=== PATIENT | female | born 1985 | race Caucasian/White ===

== ENCOUNTER 2016-06-15 18:58 | Emergency (ER) | payer OTHER ==
[~2016-06-15] VITALS: Ht 162.6 cm; Wt 70.0 kg
[2016-06-15 19:13] VITALS: Ht 162.6 cm; Wt 70.0 kg
[2016-06-15] MEDS ORDERED: SOD CHLORIDE 0.9% 1,000 ML IV STA (20:04)
[2016-06-15] MEDS ORDERED: morphine 2 MG INJ IV ONE ×2 (20:30→21:30)
[2016-06-15 20:49] LABS: BASOPHILS % 0.4 % (0.0-2.0); EOSINOPHILS % 0.2 % (0.0-7.0); HEMATOCRIT 40.3 % (37.0-47.0); HEMOGLOBIN 14.1 g/dl (12.0-16.0); LYMPHOCYTES # 1.8 10^3/ul (0.8-2.9); LYMPHOCYTES % 22.3 % (15.0-51.0); MEAN CORPUSCULAR HEMOGLOBIN 35.5 pg (29.0-33.0); MEAN CORPUSCULAR HGB CONC 35.1 g/dl (32.0-37.0); MEAN CORPUSCULAR VOLUME 101.4 fl (82.0-101.0); MEAN PLATELET VOLUME 7.8 fl (7.4-10.4); MONOCYTE # 0.5 10^3/ul (0.3-0.9); MONOCYTES % 6.8 % (0.0-11.0); NEUTROPHIL # 5.5 10^3/ul (1.6-7.5); NEUTROPHILS % 70.3 % (39.0-77.0); PLATELET COUNT 285 10^3/UL (140-440); RED BLOOD COUNT 3.98 10^6/ul (4.20-5.40); UNCORRECTED WBC 7.9 10^3/ul (4.8-10.8); WHITE BLOOD COUNT 7.9 10^3/ul (4.8-10.8)
[2016-06-15 20:58] LABS: INR 0.93; PROTIME 12.5 Sec (12.2-14.2)
[2016-06-15 20:59] LABS: PARTIAL THROMBOPLASTIN TIME 24.6 Sec (25.0-35.0)
[2016-06-15 21:03] LABS: ADD UMIC NO; URINE BILIRUBIN (Dip) NEGATIVE (NEGATIVE); URINE BLOOD (Dip) NEGATIVE (NEGATIVE); URINE COLOR LT. YELLOW (YELLOW); URINE GLUCOSE (Dip) NEGATIVE (NEGATIVE); URINE KETONES (Dip) NEGATIVE (NEGATIVE); URINE LEUKOCYTE ESTERASE (Dip) NEGATIVE (NEGATIVE); URINE NITRITE (Dip) NEGATIVE (NEGATIVE); URINE TOTAL PROTEIN (Dip) NEGATIVE (NEGATIVE); URINE UROBILINOGEN (Dip) 0.2 E.U./dL (0.1-1.0)
[2016-06-15 21:07] LABS: CONDITION 1; LH ANALYZER COMMENTS 1
--- NOTE | 2016-06-15 22:06 | RADRPT ---
PROCEDURE: US OB. CLINICAL INDICATION: Pelvic pain TECHNIQUE: Transabdominal views of the pelvis are available for review. COMPARISON: No prior studies are available for comparison. FINDINGS: There is a single intrauterine gestation with the crown-rump length measuring 2.6 cm, corresponding to a gestational age of 9 weeks and 3 days. The heart rate is noted at 176 bpm. The ovaries are not seen. There is no free fluid. RPTAT: AA IMPRESSION: Single live intrauterine with an estimated gestational age of 9 weeks and 3 days, based on ultrasound measurements. JULIA based on ultrasound measurements is 01/13/17. .Iain Sandoval MD, MD Date Time Electronically viewed and signed by .Iain Sandoval MD, MD on 06/15/2016 22:06 .S/
--- NOTE | 2016-06-15 22:07 | RADRPT ---
PROCEDURE: US Lower extremity Venous. CLINICAL INDICATION: Bilateral lower extremity swelling , pain TECHNIQUE: Multiple sonographic images of the bilateral lower extremity deep venous system was obt ained utilizing grayscale, color-flow, compressive sonography and doppler imaging with augmentation. The images were reviewed on a PACS workstation. COMPARISON: None. FINDINGS: There is normal compressibility and flow within the bilateral common femoral, superficial femoral , posterior tibial and popliteal veins. RPTAT: AA IMPRESSION: No sonographic evidence for deep venous thrombosis. .Iain Sandoval MD, MD Date Time Electronically viewed and signed by .Iain Sandoval MD, MD on 06/15/2016 22:06 .S/
[2016-06-15] MEDS ORDERED: ACET500C5 PO (22:30)
[2016-06-15 22:45] VITALS: BP 127/68; PULSE 68; RESP 16; TEMP 98.1
--- NOTE | 2016-06-16 01:29 | ERD ---
ER Documentation Chief Complaint Date/Time DATE: 06/16/16 TIME: 01:24 Chief Complaint pelvic pain, no bleeding, 9 weeks preg. pain shooting down R leg HPI This patient is a 31-year-old female who is Ab1 currently approximately 9- 1/2 weeks presenting to the emergency room for her bilateral lower extremities. She reports recent long travel from [place]. Additionally she has bilateral suprapubic pain which began today. She denies any significant medical history. She denies any shortness of breath, fevers, nausea, vomiting, diarrhea, or other symptoms at this time. ROS All systems reviewed and are negative except as per history of present illness. Medications Home Meds Active Scripts Acetaminophen* (Tylophen*) 500 Mg Capsule, 1 CAP PO Q6H Y for PAIN AND OR ELEVATED TEMP, #20 CAP Prov:SONU TIRADO PA-C 06/15/16 Allergies Allergies: Coded Allergies: No Known Drug Allergies (Verified Allergy, Unknown, 06/15/16) PMhx/Soc History of Surgery: Yes () Hx Miscellaneous Medical Probl: Yes (hx of lower back herniated disc ) Hx Alcohol Use: No Hx Substance Use: No Hx Tobacco Use: No FmHx Noncontributory for chief complaint Physical Exam Vitals Vital Signs Date Time Temp Pulse Resp B/P Pulse Ox O2 Delivery O2 Flow Rate FiO2 06/15/16 22:45 98.1 68 16 127/68 99 06/15/16 19:13 62 17 111/58 98 Physical Exam INITIAL VITAL SIGNS: Reviewed by me. GENERAL: Alert and interactive. No acute distress. HEAD: Head is normocephalic and atraumatic. EYES: EOMI. No scleral icterus. No conjunctival injection. ENT: Moist mucosa. NECK: Supple. Full range of motion. BACK: Mild tenderness to palpation of the paraspinal muscles of the lumbar spine on the right side. RESPIRATORY: Normal respiratory effort. Clear breath sounds bilaterally. No wheezing, rales, or rhonchi. CV: Regular rate and rhythm. Normal S1 S2. No S3 or S4. No murmurs. ABDOMEN: Gravid abdomen, soft, non-distended, non-tender. No guarding. No rebound. No masses. EXTREMITIES: Tenderness to palpation of bilateral lower extremities in the thigh area. There is no erythema or warmth to bilateral lower extremities. SKIN: Warm and dry. NEUROLOGIC: Alert and oriented x 4. Speech is normal. Moves all extremities equally. No motor or sensory deficits noted. Result Diagram: 06/15/16 2030 Results 24 hrs Laboratory Tests Test 06/15/16 20:30 Activated Partial Thromboplast Time 24.6Sec Basophils # 0.010^3/ul Basophils % 0.4% Beta HCG, Quantitative 44023.0mIU/ml Blood Morphology Comment Eosinophils # 0.010^3/ul Eosinophils % 0.2% Hematocrit 40.3% Hemoglobin 14.1g/dl INR International Normalized Ratio 0.93 Lymphocytes # 1.810^3/ul Lymphocytes % 22.3% Mean Corpuscular Hemoglobin 35.5pg Mean Corpuscular Hemoglobin Concent 35.1g/dl Mean Corpuscular Volume 101.4fl Mean Platelet Volume 7.8fl Monocytes # 0.510^3/ul Monocytes % 6.8% Neutrophils # 5.510^3/ul Neutrophils % 70.3% Nucleated Red Blood Cells # 0.010^3/ul Nucleated Red Blood Cells % 0.0/100WBC Platelet Count 29347^3/UL Prothrombin Time 12.5Sec Prothrombin Time Ratio 1.0 Red Blood Count 3.9810^6/ul Red Cell Distribution Width 12.0% Urine Bilirubin NEGATIVE Urine Clarity CLEAR Urine Color LT. YELLOW Urine Glucose NEGATIVE% Urine Hemoglobin NEGATIVE Urine Ketones NEGATIVE Urine Leukocyte Esterase NEGATIVE Urine Nitrite NEGATIVE Urine Specific [place] 1.015 Urine Total Protein NEGATIVE Urine Urobilinogen 0.2 E.U./dL Urine pH 7.5 White Blood Count 7.910^3/ul Current Medications Medications (Trade) Dose Ordered Sig/Isabela Route PRN Reason Start Time Stop Time Status Last Admin Dose Admin Sodium Chloride (NS) 1,000 ml @ 1,000 mls/hr Q1H STAT IV 06/15/16 20:04 06/15/16 22:56 DC 06/15/16 20:31 Morphine Sulfate (morphine) 2 mg ONCE ONCE IV 06/15/16 20:30 06/15/16 22:56 DC 06/15/16 20:28 Morphine Sulfate (morphine) 2 mg ONCE ONCE IV 06/15/16 21:30 06/15/16 22:56 DC 06/15/16 21:37 Procedures/MDM EMERGENCY DEPARTMENT COURSE / MEDICAL DECISION MAKING: This is a 31-year-old female who comes to the emergency room secondary to complaints of suprapubic pain and bilateral leg pain. The patient was given IV morphine and IV fluids in the department. On re- evaluation, the patient was feeling improved. Lab results reviewed and showed no significant abnormalities. UA results were not concerning for urinary tract infection. Beta hCG was consistent with term of . Radiology: PROCEDURE: US OB. CLINICAL INDICATION: Pelvic pain TECHNIQUE: Transabdominal views of the pelvis are available for review. COMPARISON: No prior studies are available for comparison. FINDINGS: There is a single intrauterine gestation with the crown-rump length measuring 2.6 cm, corresponding to a gestational age of 9 weeks and 3 days. The heart rate is noted at 176 bpm. The ovaries are not seen. There is no free fluid. RPTAT: AA IMPRESSION: Single live intrauterine with an estimated gestational age of 9 weeks and 3 days, based on ultrasound measurements. JULIA based on ultrasound measurements is 01/13/17. .Iain Sandoval MD, Date Time Electronically viewed and signed by .Iain Sandoval MD, MD on 06/15/2016 22: 06 PROCEDURE: US Lower extremity Venous. CLINICAL INDICATION: Bilateral lower extremity swelling , pain TECHNIQUE: Multiple sonographic images of the bilateral lower extremity deep venous system was obtained utilizing grayscale, color-flow, compressive sonography and doppler imaging with augmentation. The images were reviewed on a PACS workstation. COMPARISON: None. FINDINGS: There is normal compressibility and flow within the bilateral common femoral, superficial femoral , posterior tibial and popliteal veins. RPTAT: AA IMPRESSION: No sonographic evidence for deep venous thrombosis. .Iain Sandoval MD, Date Time Electronically viewed and signed by .Iain Sandoval MD, on 06/15/2016 22: 06 The primary diagnosis is pelvic pain during . Secondary diagnosis is back pain with sciatica. I have low suspicion for epidural abscess, ovarian torsion, ectopic , cauda equina, or other emergent conditions at this time. Discharge: I have discussed the lab results and diagnostic findings with the patient and answered any questions or concerns. The patient was discharged with a prescription for Tylenol. The patient was given WHEELCHAIR RENTAL CLERK referral. The patient was advised to followup with their PMD in 1-2 days and to return to the Emergency Department if there are any new or worsening symptoms. The patient understood and agreed with the diagnosis, treatment and plan. The patient is stable for discharge at this time. Departure Diagnosis: Primary Impression: Pelvic pain during Additional Impression: Back pain with sciatica Condition: Fair Patient Instructions: Back Pain W/ Sciatica, Pelvic Pain In : Unclear (2-3 Trimester) Referrals: ZHENG YA MD, BIJAN MD BROOKS,GERI COTO [facility] YOU HAVE RECEIVED A MEDICAL SCREENING EXAM AND THE RESULTS INDICATE THAT YOU DO NOT HAVE A CONDITION THAT REQUIRES URGENT TREATMENT IN THE EMERGENCY DEPARTMENT. FURTHER EVALUATION AND TREATMENT OF YOUR CONDITION CAN WAIT UNTIL YOU ARE SEEN IN YOUR DOCTORS OFFICE WITHIN THE NEXT 1-2 DAYS. IT IS YOUR RESPONSIBILITY TO MAKE AN APPOINTMENT FOR FOLOW-UP CARE. IF YOU HAVE A PRIMARY DOCTOR --you should call your primary doctor and schedule an appointment IF YOU DO NOT HAVE A PRIMARY DOCTOR YOU CAN CALL OUR PHYSICIAN REFERRAL HOTLINE AT IF YOU CAN NOT AFFORD TO SEE A PHYSICIAN YOU CAN CHOSE FROM THE FOLLOWING [facility] CLINICS [facility] [address] [facility]. [facility] [address] [facility]. [facility] [address] [facility]. [facility] [address] [facility]. [facility] [address] [facility]. [facility] [address] [place] Additional Instructions: Follow-up with your primary care physician as soon as possible. Follow-up with an WHEELCHAIR RENTAL CLERK physician as soon as possible. Return to the emergency department immediately should you have any new or worsening symptoms, uncontrolled fevers, or other unexplained symptoms. Take all medications as directed. SONU TIRADO PA-C Jun 16, 2016 01:29
== END 2016-06-15 22:54 | disposition home or self-care (01) ==
LOC: FTE 18:58
DX: O26.891 Other specified pregnancy related conditions, first trimester (principal); R10.2 Pelvic and perineal pain; M54.41 Lumbago with sciatica, right side; O99.89 Other specified diseases and conditions complicating pregnancy, childbirth and the puerperium; Z3A.09 9 weeks gestation of pregnancy
CPT/HCPCS: 36415; 76801; 81003; 84702; 85025; 85610; 85730; 86900; 86901; 93970; 96374; 96376; J2270; J7030; Z7502

== ENCOUNTER 2016-06-23 16:32 | Emergency (ER) | payer OTHER ==
[~2016-06-23] VITALS: Wt 68.6 kg
[~2016-06-23 16:32] MED LIST: ACET500C5 PO
--- NOTE | 2016-06-23 17:20 | ERD ---
ER Documentation Chief Complaint Date/Time DATE: 06/23/16 TIME: 17:10 Chief Complaint ABD PAIN, ONSET THIS AM, PT 10 WKS PG, NO VB HPI 31 y/o female presents to ED for abdominal pain that started this morning. Pain was described on her pelvic area as "sharp, pressure across my pelvic area, radiates to my lower back but I have a history of herniated disc." Also reports that she is very nauseous but did not vomit. Has difficulty walking. Took Tylenol "on and a half hour before I got here." Also added that she has right sided abdominal pain with difficulty walking due to the pain. 10 weeks . A1. Denies headache, loss of consciousness, dizziness, blurry vision, changes in vision, photophobia, facial pain, ear pain, throat pain, difficulty swallowing, neck pain, shoulder pain, chest pain, cough, hemoptysis, loss of appetite, nausea, hematochezia, diarrhea, constipation, urinary symptoms, vaginal discharge, vaginal bleeding, bladder and bowel incontinences, extremity weakness , extremity tenderness, numbness or tingling sensation, recent travel, recent exposure to illness, recent antibiotic use in the last 3 months, fever, chills. Allergy: NKA PMH: Herniated disc. Family medical history: A1 LMP: 04/04/2016 EDC: 01/15/2017 Medications: vitamins. Surgery: Denies. 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 ROS All systems reviewed and are negative except as per history of present illness. Medications Home Meds Active Scripts Ondansetron Hcl* (Zofran*) 4 Mg Tablet, 4 MG PO Q6H Y for NAUSEA, #30 TAB Prov:PASILABANSAMSONAR F 06/23/16 Acetaminophen* (Tylenol*) 325 Mg Tablet, 1 TAB PO Q6 Y for PAIN AND OR ELEVATED TEMP, #20 TAB Prov:PASILABAN,KLAR F 06/23/16 Nitrofurantoin Monohyd Macrocr* (Macrobid*) 100 Mg Capsr, 100 MG PO BID for 10 Days, CAP Prov:PASILABAN,KLAR F 06/23/16 Acetaminophen* (Tylophen*) 500 Mg Capsule, 1 CAP PO Q6H Y for PAIN AND OR ELEVATED TEMP, #20 CAP Prov:SONU TIRADO Myrna ELIZABETH 06/15/16 Allergies Allergies: Coded Allergies: No Known Drug Allergies (Verified Allergy, Unknown, 06/15/16) PMhx/Soc History of Surgery: Yes () Hx Miscellaneous Medical Probl: Yes (hx of lower back herniated disc ) Hx Alcohol Use: No Hx Substance Use: No Hx Tobacco Use: No Physical Exam Vitals Vital Signs Date Time Temp Pulse Resp B/P Pulse Ox O2 Delivery O2 Flow Rate FiO2 06/23/16 16:34 99.0 83 17 111/55 98 Physical Exam CONSTITUTIONAL: Well-appearing; well-nourished; in no apparent distress. HEAD: Normocephalic; atraumatic. EYES: Conjunctiva clear, sclera non-icteric, EOM intact. PERRL Ears: Hearing intact. EACs clear, TMs non-bulging, non-inflamed, translucent & mobile, ossicles normal appearance, No obstructions, no erythema, no discharges Nose: No obstructions. No polyps. No external lesions. Mucosa non-inflamed. No external lesions, septum and turbinates normal. No rhinorrhea. No discharges. Frontal sinus is non-tender to palpation. Maxillary sinus is non-tender to palpation. MOUTH: Moist mucous membranes, no lesion, no obstructions, no vesicles, no thrush, patent airway Throat: Uvula in midline. Right tonsil is +1 with no erythema, no exudate. Left tonsil is +1 with no erythema, no exudate. Tolerating secretions well. Good gag reflex. Patent airway. Neck: Supple, without lesions, bruits, or adenopathy. No mass. Thyroid non- enlarged and non-tender to palpation. CHEST: Symmetrical chest. Respirations even and not labored. No retractions noted. CARDIOVASCULAR: Normal S1, S2. RRR. No murmurs, gallops. RESPIRATORY: Normal chest excursion with respiration; breath sounds clear and equal bilaterally; no wheezes, rhonchi, or rales. Breathing even and unlabored. Speaking in clear, full, and complete sentences w/ ease. ABDOMEN: Normal bowel sounds normal. Soft, round, non-distended, non-guarding, no rebound, no organomegaly, no masses, no pulsating abdominal mass. No hernia. No peritoneal signs. Right lower abdominal tenderness on light and deep palpation. Has slight difficulty walking due to the pain. : Right sided CVA tenderness. BACK: Symmetrical shoulder. Spine is midline without deformity, tenderness. No evidence of trauma or deformity. PELVIS: Stable pelvis. No evidence of trauma or deformity. Pelvic pain and tenderness. MUSCULOSKELETAL: Normal gait and station. No misalignment, asymmetry, crepitation, defects, tenderness, masses, effusions, decreased range of motion, instability, atrophy or abnormal strength or tone in the head, neck, spine, ribs , pelvis or extremities. No calf tenderness. NEUROVASCULAR: Distal pulses are present. Pedal pulse are present, equal, and normal. Capillary refills are < 2 seconds. NEUROLOGIC: Alert and oriented x4. Speaks full and clear sentences. Cranial Nerves II-XII normal. Sensation to pain, touch, and proprioception normal. Grossly unremarkable. No neurologic deficits. Romberg test is negative. PSYCHOLOGICAL: The patients mood and manner are appropriate. No hallucinations , delusions. Not SI. Not HI. Has the capacity to decide for self SKIN: Normal for age and ethnicity; warm; dry; good turgor; no apparent lesions or exudates. No rashes, hives, discoloration. Intact. Result Diagram: 06/23/16 1730 06/23/16 1730 Results 24 hrs Laboratory Tests Test 06/23/16 17:25 06/23/16 17:30 Urine Amorphous Urates MODERATE Urine Bacteria FEW Urine Bilirubin NEGATIVE Urine Clarity CLOUDY Urine Color YELLOW Urine Glucose NEGATIVE% Urine Hemoglobin 1+ Urine Ketones TRACE Urine Leukocyte Esterase TRACE Urine Microscopic RBC 5-10/HPF Urine Microscopic WBC 5-10/HPF Urine Nitrite NEGATIVE Urine Specific [place] >=1.030 Urine Squamous Epithelial Cells MANY Urine Total Protein TRACE Urine Urobilinogen 0.2 E.U./dL Urine pH 6.0 Alanine Aminotransferase (ALT/SGPT) 19IU/L Albumin 3.9g/dl Albumin/Globulin Ratio 1.44 Alkaline Phosphatase 41IU/L Anion Gap 12 Aspartate Amino Transf (AST/SGOT) 17IU/L Basophils # 0.010^3/ul Basophils % 0.3% Beta HCG, Quantitative 50084.0mIU/ml Blood Morphology Comment Blood Urea Nitrogen 12mg/dl Calcium Level 9.2mg/dl Carbon Dioxide Level 29mmol/L Chloride Level 102mmol/L Creatinine 0.66mg/dl Direct Bilirubin 0.00mg/dl Eosinophils # 0.110^3/ul Eosinophils % 1.0% Globulin 2.70g/dl Glucose Level 64mg/dl Hematocrit 39.1% Hemoglobin 13.5g/dl Indirect Bilirubin 0.1mg/dl Lymphocytes # 1.610^3/ul Lymphocytes % 22.0% Mean Corpuscular Hemoglobin 35.1pg Mean Corpuscular Hemoglobin Concent 34.5g/dl Mean Corpuscular Volume 101.8fl Mean Platelet Volume 7.6fl Monocytes # 0.610^3/ul Monocytes % 7.7% Neutrophils # 5.010^3/ul Neutrophils % 69.0% Nucleated Red Blood Cells # 0.010^3/ul Nucleated Red Blood Cells % 0.0/100WBC Platelet Count 09505^3/UL Potassium Level 3.6mmol/L Red Blood Count 3.8410^6/ul Red Cell Distribution Width 12.1% Sodium Level 139mmol/L Total Bilirubin 0.1mg/dl Total Protein 6.6g/dl White Blood Count 7.310^3/ul Procedures/MDM Examination: Unremarkable examination except pelvic tenderness, right lower abdominal tenderness on light and deep palpation, right-sided CVA tenderness. Disease process, medical treatment was explained to the patient and family member. They verbalized understanding and agreed with the diagnostic tests, medical treatment, and follow-up care. Radiology: Pelvic ultrasound: Impression: Single live intrauterine with an estimated gestational age of 10 weeks and 5 days, based on ultrasound measurements. JULIA based on ultrasound measurement is 01/14/17. Blood works: Reviewed. POC urine : Positive. Urinalysis: Reviewed. Treatment: None. Re-evaluation: Denies shoulder pain, chest pain, back pain/cramping, abdominal pain/cramping, vaginal bleeding, nausea and vomiting. Stated that she feels much better at this time and she wants to go home as soon as possible. Consultation: None. Differential diagnosis: Ectopic versus abdominal pain in versus appendicitis Medical decision makin31 y/o female presents to ED for abdominal pain that started this morning. Pain was described on her pelvic area as "sharp, pressure across my pelvic area, radiates to my lower back but I have a history of herniated disc." Also reports that she is very nauseous but did not vomit. Has difficulty walking. Took Tylenol "on and a half hour before I got here." Also added that she has right sided abdominal pain with difficulty walking due to the pain. 10 weeks . A1. Urinary tract infection in . Medications prescribed are the following: Macrobid. Tylenol. Zofran. Patient and family member are made aware of the side effects and adverse reactions of the medications prescribed. Instructed on when to seek emergent and medical attention in case allergic/anaphylactic reactions or severe side effects and or adverse reactions to medications. Patient and family member verbalized understanding. Patient instructed Instructed to follow-up with his PCP in 24-48 hours. Follow-up with OB in the next 24-48 hours. Instructed to Call 911 for chest pain, shortness of breath. Advised to come back here in ED as soon as possible for severity of symptoms which includes but not limited to: any new symptoms; shortness of breath/difficulty of breathing; cardiovascular changes; severe gastrointestinal symptoms; signs and symptoms of bleeding and or infection; signs of compartment syndrome/neurovascular changes; neurological changes/deficits. Patient and family member verbalized understanding. Upon discharge, patient is alert and oriented x 4, speaks full and clear sentences, denies pain, has no neurological deficits, has no neurovascular deficits, difficulty of breathing. Breathing even and unlabored. Lung sounds are clear to auscultation. Not in distress. Appears comfortable. Ambulatory with steady gait. Appears satisfied with care provided here in ED. Departure Diagnosis: Primary Impression: Urinary tract infection during Trimester: first trimester Qualified Code: O23.41 - Urinary tract infection during , first trimester Condition: Good Additional Instructions: Follow-up with OB in the next 24-48 hours. HASEEB FINE Jun 23, 2016 17:20
[2016-06-23 17:39] LABS: BASOPHILS % 0.3 % (0.0-2.0); EOSINOPHILS # 0.1 10^3/ul (0.0-0.5); HEMATOCRIT 39.1 % (37.0-47.0); HEMOGLOBIN 13.5 g/dl (12.0-16.0); LYMPHOCYTES # 1.6 10^3/ul (0.8-2.9); MEAN CORPUSCULAR HEMOGLOBIN 35.1 pg (29.0-33.0); MEAN CORPUSCULAR HGB CONC 34.5 g/dl (32.0-37.0); MEAN CORPUSCULAR VOLUME 101.8 fl (82.0-101.0); MEAN PLATELET VOLUME 7.6 fl (7.4-10.4); MONOCYTE # 0.6 10^3/ul (0.3-0.9); MONOCYTES % 7.7 % (0.0-11.0); PLATELET COUNT 248 10^3/UL (140-440); RED BLOOD COUNT 3.84 10^6/ul (4.20-5.40); RED CELL DISTRIBUTION WIDTH 12.1 % (11.5-14.5); UNCORRECTED WBC 7.3 10^3/ul (4.8-10.8); WHITE BLOOD COUNT 7.3 10^3/ul (4.8-10.8)
[2016-06-23 17:42] LABS: CONDITION 1; LH ANALYZER COMMENTS 1
[2016-06-23 17:46] LABS: ADD UMIC YES; URINE BILIRUBIN (Dip) NEGATIVE (NEGATIVE); URINE BLOOD (Dip) 1+ (NEGATIVE); URINE COLOR YELLOW (YELLOW); URINE GLUCOSE (Dip) NEGATIVE (NEGATIVE); URINE KETONES (Dip) TRACE (NEGATIVE); URINE LEUKOCYTE ESTERASE (Dip) TRACE (NEGATIVE); URINE NITRITE (Dip) NEGATIVE (NEGATIVE); URINE TOTAL PROTEIN (Dip) TRACE (NEGATIVE); URINE UROBILINOGEN (Dip) 0.2 E.U./dL (0.1-1.0)
[2016-06-23 17:50] LABS: ALBUMIN 3.9 g/dl (3.3-4.9)
[2016-06-23 17:51] LABS: POTASSIUM 3.6 mmol/L (3.5-5.1)
[2016-06-23 17:53] LABS: BILIRUBIN,INDIRECT 0.1 mg/dl (0-1.1); BILIRUBIN,TOTAL 0.1 mg/dl (0.2-1.3); CREATININE 0.66 mg/dl (0.44-1.00)
[2016-06-23 17:54] LABS: ALBUMIN/GLOBULIN RATIO 1.44; CALCIUM 9.2 mg/dl (8.4-10.2); TOTAL PROTEIN 6.6 g/dl (6.1-8.1)
--- NOTE | 2016-06-23 18:00 | RADRPT ---
PROCEDURE: US OB. CLINICAL INDICATION: pelvic pain TECHNIQUE: Transabdominal views of the pelvis are available for review. COMPARISON: 06/15/16 FINDINGS: There is a single intrauterine gestation with the crown-rump length measuring 3.8 cm, corresponding to a gestational age of 10 weeks and 5 days. The heart rate is noted at 176 bpm. The ovaries are not visualized. There is no free fluid. RPTAT: AA IMPRESSION: Single live intrauterine with an estimated gestational age of 10 weeks and 5 days, based o n ultrasound measurements. JULIA based on ultrasound measurements is 01/14/17. .Iain Sandoval MD, MD Date Time Electronically viewed and signed by .Iain Sandoval MD, on 06/23/2016 17:59 .S/
[2016-06-23 18:23] LABS: BACTERIA,URINE FEW; SQUAMOUS EPITHELIAL CELL,UR MANY
[2016-06-23] MEDS ORDERED: NITR-58 PO (18:48)
[2016-06-23] MEDS ORDERED: ACET325T33 PO (18:49)
[2016-06-23] MEDS ORDERED: ONDA4TAB8 PO (18:50)
[2016-06-23 19:22] VITALS: BP 108/65; PULSE 85; RESP 20
== END 2016-06-23 19:23 | disposition home or self-care (01) ==
LOC: FTE 16:32
DX: O23.41 Unspecified infection of urinary tract in pregnancy, first trimester (principal); R10.2 Pelvic and perineal pain; Z3A.10 10 weeks gestation of pregnancy
CPT/HCPCS: 36415; 76801; 80053; 81001; 84702; 85025; 86900; 86901; Z7502; 81003